=== PATIENT | male | born 1970 | race Caucasian/White ===

== ENCOUNTER 2018-05-05 20:37 | Emergency (ER) | payer SELFPAY ==
[~2018-05-05] VITALS: Ht 167.6 cm; Wt 65.2 kg
[2018-05-05 20:43] VITALS: BP 146/88
[2018-05-05] MEDS ORDERED: LIDOCAINE 1%-EPI 1:100K, 30ML ONE (20:53)
[2018-05-05] MEDS ORDERED: DIPH,PERTUSS(ACELL),TET VAC/PF 0.5 ML IM-VACC ONE (21:00)
[2018-05-05] MEDS ORDERED: LIDOCAINE-MPF 1%, 5ML INFIL ONE (21:00)
[2018-05-05] MEDS ORDERED: LIDOCAINE 1%-EPI 1:100K, 20ML SQ ONE (21:00)
== END 2018-05-05 22:10 | disposition home or self-care (01) ==
LOC: ED 22:04
DX: S91.312A Laceration without foreign body, left foot, initial encounter (principal); Z87.891 Personal history of nicotine dependence; X58.XXXA Exposure to other specified factors, initial encounter; Y93.89 Activity, other specified; Y92.828 Other wilderness area as the place of occurrence of the external cause; Y99.8 Other external cause status
CPT/HCPCS: 12032; 90471; 90715; 99284; J3490